=== PATIENT | male | born 1955 | race Caucasian/White ===

== ENCOUNTER 2017-11-16 13:38 | Emergency (ER) | payer BC ==
[~2017-11-16] VITALS: Ht 170.2 cm; Wt 88.6 kg
[2017-11-16 13:52] VITALS: TEMP 97.4
[2017-11-16 15:08] LABS: BASO % 0.1 % (0.0-2.0); EOS % 0.5 % (0-4.0); GRAN % 82.6 % (42.2-75.2); HEMATOCRIT 37.6 % (42.0-52.0); HEMOGLOBIN 12.6 g/dl (13.5-18.0); LYMPH # 0.9 (1.2-3.4); LYMPH % 11.6 % (20.0-51.0); MEAN CELL VOLUME 95 fl (80.0-100.0); MEAN CORPUSCULAR HEMOGLOBIN 32 pg (27.0-31.0); MEAN CORPUSCULAR HGB CONC 34 g/dl (33.0-37.0); MEAN PLATELET VOLUME 8.5 fl (7.4-10.4); MONO # 0.4 (0.1-0.6); MONO % 5.1 % (1.7-9.3); PLATELET COUNT 191 K/mm3 (130-400); RED BLOOD COUNT 3.98 M/mm3 (4.20-5.60)
[2017-11-16 15:18] LABS: ALANINE AMINOTRANSFERASE 26 U/L (21-72); ALKALINE PHOSPHATASE 43 U/L (50-136); ANION GAP 8 mmol/L (7-16); AST,SGOT 20 U/L (15-37); BILIRUBIN,TOTAL 0.3 mg/dL (0.0-1.0); BLOOD UREA NITROGEN 20 mg/dL (9-20); CALCIUM 8.2 mg/dL (8.4-10.2); CARBON DIOXIDE 26 mmol/L (22-30); CHLORIDE 104 mmol/L (98-107); CREATININE, serum 0.79 mg/dL (0.66-1.25); GLUCOSE 178 mg/dL (74-106); POTASSIUM 3.9 mmol/L (3.4-5.0); SODIUM 138 mmol/L (137-145); TOTAL PROTEIN 5.8 gm/dL (6.4-8.2)
[2017-11-16 15:29] LABS: TROPONIN-I < 0.012 ng/mL (0.000-0.034)
[2017-11-16 17:39] VITALS: BP 110/18; PULSE 71
== END 2017-11-16 17:18 | disposition home or self-care (01) ==
LOC: COL.ER 13:38
PROVIDERS: Physician Assistant
DX: R55 Syncope and collapse (principal)

== ENCOUNTER → 2018-01-25 | Outpatient (REF) | LOC: ZMSC 12:51 | DX: Z01.89 Encounter for other specified special examinations (principal) ==

== ENCOUNTER 2018-03-01 17:54 | Inpatient (IN) | payer BC ==
[~2018-03-01] VITALS: Ht 170.2 cm; Wt 85.8 kg
[2018-03-01 18:14] VITALS: BP 136/77; PULSE 107; TEMP 98.1
[2018-03-01] MEDS ORDERED: IBU400 MG PO (19:22)
[2018-03-01 20:00] VITALS: BP 119/70; PULSE 83; TEMP 99.2
[2018-03-01 20:33] LABS: INR 1.2 (0.8-3.0)
[2018-03-01 20:34] LABS: BASO % 0.3 % (0.0-2.0); EOS # 0.1 (0.0-0.7); EOS % 0.5 % (0-4.0); GRAN # 8.6 (1.4-6.5); GRAN % 77.2 % (42.2-75.2); HEMATOCRIT 36.6 % (42.0-52.0); HEMOGLOBIN 12.1 g/dl (13.5-18.0); LYMPH # 1.5 (1.2-3.4); MEAN CELL VOLUME 86 fl (80.0-100.0); MEAN CORPUSCULAR HEMOGLOBIN 28 pg (27.0-31.0); MEAN CORPUSCULAR HGB CONC 33 g/dl (33.0-37.0); MEAN PLATELET VOLUME 8.6 fl (7.4-10.4); MONO # 0.9 (0.1-0.6); MONO % 7.9 % (1.7-9.3); PLATELET COUNT 461 K/mm3 (130-400); RED BLOOD COUNT 4.27 M/mm3 (4.20-5.60); REDCELL DISTRIBUTION WIDTH-CV 15.3 % (11.5-14.5)
[2018-03-01 20:36] LABS: PARTIAL THROMBOPLASTIN TIME 30.9 SECONDS (26.0-37.0)
[2018-03-01 20:39] LABS: ALBUMIN 3.5 gm/dL (3.5-5.0); BILIRUBIN,TOTAL 0.5 mg/dL (0.0-1.0); CALCIUM 8.4 mg/dL (8.4-10.2); CREATININE, serum 0.88 mg/dL (0.66-1.25); POTASSIUM 4.2 mmol/L (3.4-5.0); TOTAL PROTEIN 7.4 gm/dL (6.4-8.2)
[2018-03-01 20:50] LABS: C-REACTIVE PROTEIN 21.6 mg/dL (0.0-0.9)
[2018-03-02] VITALS (11 sets, daily range): BP systolic 103–123; BP diastolic 51–77; PULSE 66–84; TEMP 98–98.7
[2018-03-03] VITALS: BP 107/56; PULSE 70; TEMP 98.1
[2018-03-03 04:00] VITALS: BP 112/66; PULSE 58; TEMP 97.7
[2018-03-03 06:40] LABS: BASO % 0.2 % (0.0-2.0); EOS # 0.1 (0.0-0.7); EOS % 0.4 % (0-4.0); GRAN # 9.3 (1.4-6.5); GRAN % 79.1 % (42.2-75.2); HEMATOCRIT 32.3 % (42.0-52.0); HEMOGLOBIN 10.4 g/dl (13.5-18.0); LYMPH # 1.7 (1.2-3.4); LYMPH % 14.2 % (20.0-51.0); MEAN CELL VOLUME 88 fl (80.0-100.0); MEAN CORPUSCULAR HEMOGLOBIN 28 pg (27.0-31.0); MEAN CORPUSCULAR HGB CONC 32 g/dl (33.0-37.0); MEAN PLATELET VOLUME 8.6 fl (7.4-10.4); MONO # 0.6 (0.1-0.6); MONO % 5.3 % (1.7-9.3); PLATELET COUNT 486 K/mm3 (130-400); RED BLOOD COUNT 3.69 M/mm3 (4.20-5.60); REDCELL DISTRIBUTION WIDTH-CV 15.4 % (11.5-14.5)
[2018-03-03 07:06] LABS: CALCIUM 8.1 mg/dL (8.4-10.2); CREATININE, serum 0.71 mg/dL (0.66-1.25); POTASSIUM 3.9 mmol/L (3.4-5.0)
[2018-03-03 08:19] VITALS: BP 123/69; PULSE 52; TEMP 97.3
[2018-03-03 12:32] VITALS: BP 119/74; PULSE 60; TEMP 97.3
[2018-03-03 15:41] VITALS: BP 124/73; PULSE 57; TEMP 98.1
[2018-03-03 20:00] VITALS: BP 129/85; PULSE 63; TEMP 98.1
[2018-03-04 04:00] VITALS: BP 121/77; PULSE 54; TEMP 97.2
[2018-03-04 06:46] LABS: BASO % 0.4 % (0.0-2.0); EOS # 0.1 (0.0-0.7); EOS % 1.2 % (0-4.0); GRAN # 6.6 (1.4-6.5); GRAN % 70.7 % (42.2-75.2); HEMOGLOBIN 10.9 g/dl (13.5-18.0); LYMPH # 1.9 (1.2-3.4); LYMPH % 20.3 % (20.0-51.0); MEAN CELL VOLUME 88 fl (80.0-100.0); MEAN CORPUSCULAR HEMOGLOBIN 28 pg (27.0-31.0); MEAN CORPUSCULAR HGB CONC 32 g/dl (33.0-37.0); MEAN PLATELET VOLUME 8.3 fl (7.4-10.4); MONO # 0.6 (0.1-0.6); MONO % 6.5 % (1.7-9.3); PLATELET COUNT 514 K/mm3 (130-400); RED BLOOD COUNT 3.89 M/mm3 (4.20-5.60); REDCELL DISTRIBUTION WIDTH-CV 15.8 % (11.5-14.5)
[2018-03-04 07:03] LABS: CALCIUM 8.5 mg/dL (8.4-10.2); CREATININE, serum 0.83 mg/dL (0.66-1.25); POTASSIUM 4.3 mmol/L (3.4-5.0)
[2018-03-04 07:11] LABS: HEMATOCRIT 34.3 % (42.0-52.0)
[2018-03-04 08:35] VITALS: BP 123/85; PULSE 82; TEMP 98.4
[2018-03-04 12:35] VITALS: BP 126/72; PULSE 61; TEMP 98.3
[2018-03-04] MEDS ORDERED: ROCEPHIN 2GM VIAL21 IJ (15:19)
[2018-03-04 16:30] VITALS: BP 118/69; PULSE 66; TEMP 98.1
[2018-03-04 20:32] VITALS: BP 124/81; PULSE 77; TEMP 98.5
[2018-03-05 00:08] VITALS: BP 133/83; PULSE 64; TEMP 97.9
[2018-03-05 03:48] VITALS: BP 117/72; PULSE 61; TEMP 97.6
[2018-03-05 08:34] VITALS: BP 121/66; PULSE 66; TEMP 97.4
== END 2018-03-05 13:45 | disposition home or self-care (01) | DRG 854 ==
LOC: SURG 17:54
PROVIDERS: Hospitalist; Nurse Practitioner Family; Orthopaedic Surgery
PROC: 0J9N00Z Drainage of Right Lower Leg Subcutaneous Tissue and Fascia with Drainage Device, Open Approach (ICD-10-PCS; 2018-03-02)
PROC: 0JBN0ZZ Excision of Right Lower Leg Subcutaneous Tissue and Fascia, Open Approach (ICD-10-PCS; principal; 2018-03-02 11:00)
DX: A41.9 Sepsis, unspecified organism (principal); L02.415 Cutaneous abscess of right lower limb; B95.4 Other streptococcus as the cause of diseases classified elsewhere
CPT/HCPCS: 99222-AI; 99232-AI; A9585; C1751; J0690; J0696; J1100; J1885; J2405; J2704; J3010; J3370; J7030; J7050

== ENCOUNTER → 2018-03-01 | Outpatient (CLI) | payer BC ==
[~2018-03-01] MED LIST: IBU400 MG PO; ROCEPHIN 2GM VIAL21 IJ
[2018-03-01 15:39] LABS: ALBUMIN 3.8 gm/dL (3.5-5.0); BASO % 0.2 % (0.0-2.0); BILIRUBIN,TOTAL 0.6 mg/dL (0.0-1.0); CREATININE, serum 1.02 mg/dL (0.66-1.25); EOS # 0.1 (0.0-0.7); EOS % 0.5 % (0-4.0); GRAN % 76.6 % (42.2-75.2); HEMATOCRIT 39.4 % (42.0-52.0); HEMOGLOBIN 12.8 g/dl (13.5-18.0); LYMPH # 1.9 (1.2-3.4); LYMPH % 14.6 % (20.0-51.0); MEAN CELL VOLUME 87 fl (80.0-100.0); MEAN CORPUSCULAR HEMOGLOBIN 28 pg (27.0-31.0); MEAN CORPUSCULAR HGB CONC 33 g/dl (33.0-37.0); MEAN PLATELET VOLUME 8.4 fl (7.4-10.4); MONO # 0.9 (0.1-0.6); MONO % 7.2 % (1.7-9.3); PLATELET COUNT 521 K/mm3 (130-400); POTASSIUM 4.5 mmol/L (3.4-5.0); RED BLOOD COUNT 4.51 M/mm3 (4.20-5.60); REDCELL DISTRIBUTION WIDTH-CV 15.5 % (11.5-14.5); TOTAL PROTEIN 8.3 gm/dL (6.4-8.2)
[2018-03-01 15:51] LABS: C-REACTIVE PROTEIN 24.4 mg/dL (0.0-0.9)
[2018-03-01 16:04] LABS: ERYTHROCYTE SEDIMENTATION RATE 111 mm/hr (0-30)
== END ==
LOC: COL.LAB 14:50
PROVIDERS: Internal Medicine Infectious Disease
DX: B99.9 Unspecified infectious disease (principal)

== ENCOUNTER → 2018-03-02 | Outpatient (CLI) | payer BC | LOC: COL.LAB 08:51 | DX: M25.561 Pain in right knee (principal) ==